=== PATIENT | female | born 1975 | race Caucasian/White ===

== ENCOUNTER 2024-12-02 15:45 | Emergency (ER) | payer OTHER ==
[~2024-12-02] VITALS: Ht 172.7 cm; Wt 124.4 kg
[2024-12-02] MEDS ORDERED: BENA25CA4 PO (15:52)
[2024-12-02] MEDS ORDERED: PARO20TA3 (15:52)
[2024-12-02] MEDS ORDERED: PRED20TA (15:52)
[2024-12-02] MEDS ORDERED: SYNT50TA (15:52)
[2024-12-02] MEDS ORDERED: CLOB5CR TOP (17:32)
[2024-12-02 17:43] VITALS: BP 165/87; TEMP 96.4; O2SAT 98
== END 2024-12-02 17:44 | disposition home or self-care (01) ==
LOC: M ED 15:45
DX: L20.9 Atopic dermatitis, unspecified (principal)